=== PATIENT | female | born 1970 | race Hispanic/Latino ===

== ENCOUNTER 2019-08-07 03:45 | Emergency (ER) | payer BC ==
--- NOTE | 2019-08-07 05:24 | Cat Scan Report ---
CT head/brain wo con INDICATION / CLINICAL INFORMATION: fall head injury. TECHNIQUE: Axial CT imaging of the brain was obtained without contrast. Coronal and sagittal reformatted imaging obtained and reviewed. All CT scans at this location are performed using CT dose reduction for ALAR A by means of automated exposure control. COMPARISON: Prior head CT, 05/14/2014 FINDINGS: No intracranial hemorrhage, mass, or midline shift. No extra-axial fluid collection or suggestion of acute territorial infarct. Ventricular system and basilar cisterns are unremarkable. There is complete opacification of both maxillary antra, bilateral ethmoid air cells, and both fronta l sinuses. There is significant opacification of the sphenoid sinuses. The mastoid air cells are well aerated and clear. There appears to have been extensive bilateral sinus surgery. No calvarial fractu re noted. IMPRESSION: 1. No acute intracranial abnormality or evidence for traumatic injury. 2. Extensive pansinusitis Signer Name: Joelle Santiago MD Signed: 08/07/2019 5:19 AM Workstation Name: [id number]
[2019-08-07 05:39] LABS: Basophils # (Auto) 0.1 K/mm3 (0.0-0.1); Basophils % (Auto) 0.9 % (0.0-1.8); Eosinophils # (Auto) 0.8 K/mm3 (0.0-0.4); Hematocrit 41.5 % (30.3-42.9); Hemoglobin 13.7 gm/dl (10.1-14.3); Lymphocytes # (Auto) 2.1 K/mm3 (1.2-5.4); Lymphocytes % (Auto) 27.9 % (13.4-35.0); Mean Corpuscular HGB Conc 33 % (30-34); Mean Corpuscular Volume 88 fl (79-97); Monocytes # (Auto) 0.5 K/mm3 (0.0-0.8); Monocytes % (Auto) 6.4 % (0.0-7.3); Platelet Count 245 K/mm3 (140-440); Red Blood Count 4.73 M/mm3 (3.65-5.03); Red Cell Distribution Width 13.8 % (13.2-15.2)
[2019-08-07 06:04] LABS: Alanine Aminotransferase 17 units/L (7-56); Albumin 4.2 g/dL (3.9-5); BUN/Creatinine Ratio 17; Blood Urea Nitrogen 12 mg/dL (7-17); Calcium 9.1 mg/dL (8.4-10.2); Hemolysis Index 5
--- NOTE | 2019-08-07 06:26 | Emergency Department Report ---
ED Syncope HPI - General Chief Complaint: Syncope Stated Complaint: PASSED OUT Source: patient Exam Limitations: no limitations - History of Present Illness Initial Comments: Patient is a 49-year-old white female with a history of depression, anxiety and asthma who presents to the ED for evaluation after she had a single episode of vasovagal syncope about 30 minutes ago. Patient was watching an I&D procedure which was being performed on the heart daughter when she suddenly syncopized and fell on the floor hitting her head against compressible with brief loss of consciousness. Patient regained consciousness and admitted that she usually does not like seeing invasive procedures, and that she has previously had similar episode in the past. Patient denies headache, dizziness, nausea, vomiting, chest pain, shortness of breath, back pain, neck pain, change in vision, abdominal pain or loss of consciousness and seizure Timing/Prior Episodes: single episode today Precipitating Factors: Positive: other (Witnessed I&D procedure and had vasovagal syncope) Context: sitting, emotional stress Loss of Consciousness: brief (seconds) Current Symptoms: back to normal. denies: blurred vision, chest pain, diaphoresis, dizziness, headache, injury, lightheadedness, loss of bladder control, loss of bowel control, motionless, nausea, pale, shallow/rapid breathing, weak/absent pulse, weakness - Related Data Allergies/Adverse Reactions: Allergies clindamycin Allergy (Verified 04/23/14 20:54) Anaphylaxis duloxetine HCl [From Cymbalta] Allergy (Verified 04/23/14 20:54) Headache egg Allergy (Verified 04/23/14 20:54) Vomiting levofloxacin [From Levaquin] Allergy (Verified 04/23/14 20:54) Anaphylaxis Penicillins Allergy (Verified 04/23/14 20:54) Anaphylaxis Pork/Porcine Containing Products Allergy (Verified 04/23/14 20:54) Vomiting Sulfa (Sulfonamide Antibiotics) Allergy (Verified 04/23/14 20:54) Anaphylaxis ibuprofen Adverse Reaction (Verified 05/13/14 10:01) Vomiting lexapro Allergy (Uncoded 05/13/14 10:01) Unknown peanuts Allergy (Uncoded 05/13/14 10:01) Unknown Home Medications: Ambulatory Orders Beclomethasone Dipropionat(Nf) [Qvar 40MCG] 80 mcg INHALATION DAILY 04/24/14 Citalopram [celeXA] 10 mg PO QDAY 04/24/14 Levothyroxine [Synthroid] 88 mcg PO QAM 04/24/14 Montelukast Sodium [Singulair] 10 mg PO DAILY 04/24/14 Rosuvastatin (Nf) [Crestor] 20 mg PO QHS 04/24/14 ALBUTEROL Inhaler (OR & NICU) [ProAir HFA Inhaler] 1 inhalation INHALATION QDAY PRN 05/13/14 Levocetirizine Dihydrochloride [Xyzal] 5 mg PO Q48H 05/13/14 Indomethacin [Indocin] 25 mg PO Q8HR #30 capsule 05/17/14 Pregabalin 75 mg PO BID #60 capsule 05/17/14 ALBUTEROL Inhaler (OR & NICU) [ProAir HFA Inhaler] 2 puff IH QID PRN #1 inha 11/07/14 ALBUTEROL NEB's [Proventil 0.083% NEBS] 2.5 mg IH TID PRN #30 day 11/07/14 predniSONE [Deltasone] 50 mg PO QDAY #5 tab 11/07/14 Butalb/Acetamin/Caff 50-325-40 [Fioricet 50-325-40] 1 tab PO Q6HR PRN #12 tab 08/07/19 Doxycycline Hyclate [Doxycycline Hyclate TAB] 100 mg PO Q12HR #20 tab 08/07/19 ED Review of Systems ROS: Stated complaint: PASSED OUT Other details as noted in HPI Constitutional: denies: chills, fever Eyes: denies: eye pain, eye discharge, vision change ENT: denies: ear pain, throat pain, dental pain, hearing loss, congestion Respiratory: denies: cough, shortness of breath, wheezing Cardiovascular: denies: chest pain, palpitations Endocrine: no symptoms reported Gastrointestinal: denies: abdominal pain, nausea, diarrhea Genitourinary: denies: urgency, dysuria, discharge Musculoskeletal: denies: back pain, joint swelling, arthralgia Skin: denies: rash, lesions Neurological: other (syncope). denies: headache, weakness, paresthesias Psychiatric: anxiety. denies: depression Hematological/Lymphatic: denies: easy bleeding, easy bruising ED Past Medical Hx - Past Medical History Hx Hypertension: No Hx Congestive Heart Failure: No Hx Diabetes: No Hx Headaches / Migraines: Yes (MIGRAINES) Hx Asthma: Yes Hx COPD: No - Surgical History Additional Surgical History: Sinus Surgery, PARTIAL HYSTERECTOMY - Social History Smoking Status: Never Smoker Substance Use Type: None - Medications Home Medications: Home Medications Medication Instructions Recorded Confirmed Last Taken Type Beclomethasone Dipropionat(Nf) 80 mcg INHALATION DAILY 04/24/14 05/13/14 05/11/14 History [Qvar 40MCG] Citalopram [celeXA] 10 mg PO QDAY 04/24/14 05/13/14 05/12/14 16:00 History Levothyroxine [Synthroid] 88 mcg PO QAM 04/24/14 05/13/14 05/11/14 History 20 MG Montelukast Sodium [Singulair] 10 mg PO DAILY 04/24/14 05/13/14 05/11/14 History Rosuvastatin (Nf) [Crestor] 20 mg PO QHS 04/24/14 05/13/14 05/11/14 21:00 History ALBUTEROL Inhaler (OR & NICU) 1 inhalation INHALATION QDAY PRN 05/13/14 05/13/14 05/12/14 History [ProAir HFA Inhaler] Levocetirizine Dihydrochloride 5 mg PO Q48H 05/13/14 05/13/14 05/11/14 History [Xyzal] Indomethacin [Indocin] 25 mg PO Q8HR #30 capsule 05/17/14 Unknown Rx Pregabalin 75 mg PO BID #60 capsule 05/17/14 Unknown Rx ALBUTEROL Inhaler (OR & NICU) 2 puff IH QID PRN #1 inha 11/07/14 Unknown Rx [ProAir HFA Inhaler] ALBUTEROL NEB's [Proventil 0.083% 2.5 mg IH TID PRN #30 day 11/07/14 Unknown Rx NEBS] predniSONE [Deltasone] 50 mg PO QDAY #5 tab 11/07/14 Unknown Rx Butalb/Acetamin/Caff 50-325-40 1 tab PO Q6HR PRN #12 tab 08/07/19 Unknown Rx [Fioricet 50-325-40] Doxycycline Hyclate [Doxycycline 100 mg PO Q12HR #20 tab 11/13/19 Unknown Rx Hyclate TAB] ED Physical Exam - General Limitations: No Limitations General appearance: alert, in no apparent distress - Head Head exam: Present: atraumatic, normocephalic, normal inspection - Eye Eye exam: Present: normal appearance, PERRL, EOMI Pupils: Present: normal accommodation - ENT ENT exam: Present: normal exam, normal orophraynx, mucous membranes moist, TM's normal bilaterally, normal external ear exam - Neck Neck exam: Present: normal inspection, full ROM - Respiratory Respiratory exam: Present: normal lung sounds bilaterally. Absent: respiratory distress, wheezes, rales, rhonchi, chest wall tenderness, accessory muscle use, decreased breath sounds, prolonged expiratory - Cardiovascular Cardiovascular Exam: Present: normal rhythm, tachycardia. Absent: normal heart sounds, systolic murmur, diastolic murmur, rubs, gallop - GI/Abdominal GI/Abdominal exam: Present: soft, normal bowel sounds. Absent: tenderness, guarding, rebound, hyperactive bowel sounds, hypoactive bowel sounds, organomegaly - Extremities Exam Extremities exam: Present: normal inspection, full ROM, normal capillary refill - Back Exam Back exam: Present: normal inspection, full ROM. Absent: tenderness, CVA tenderness (R), CVA tenderness (L), muscle spasm, paraspinal tenderness - Neurological Exam Neurological exam: Present: alert, oriented X3, CN II-XII intact, normal gait, reflexes normal - Psychiatric Psychiatric exam: Present: normal affect, normal mood - Skin Skin exam: Present: warm, dry, intact, normal color. Absent: rash ED Course Vital Signs 08/07/19 03:48 Temperature 98 F Pulse Rate 105 H Respiratory 18 Rate Blood Pressure 110/61 O2 Sat by Pulse 100 Oximetry ED Medical Decision Making - Lab Data Result diagrams: 08/07/19 05:12 08/07/19 05:12 - EKG Data EKG shows normal: sinus rhythm Rate: normal - EKG Data Interpretation: normal EKG 08/07/19 06:32 The EKG shows normal sinus rhythm with ventricular rate of 64 bpm, and no ST or T-wave abnormalities. - Radiology Data Radiology results: report reviewed, image reviewed Findings [facility] [address] [place] [address] Cat Scan Report Signed Patient: MARTITA FARRELL MR#: [id number] : 1970 Acct:[id number] Age/Sex: 49 / F ADM Date: 08/07/19 Loc: ED Attending Dr: Ordering Physician: MARISOL SAUCEDO MD Date of Service: 08/07/19 Procedure(s): CT head/brain wo con Accession Number(s): [id number] cc: MARISOL SAUCEDO MD CT head/brain wo con INDICATION / CLINICAL INFORMATION: fall head injury. TECHNIQUE: Axial CT imaging of the brain was obtained without contrast. Coronal and s agittal reformatted imaging obtained and reviewed. All CT scans at this location are performed using CT dose reduction for ALARA by means of automated exposure control. COMPARISON: Prior head CT, 05/14/2014 FINDINGS: No intracranial hemorrhage, mass, or midline shift. No extra-axial fluid collection or suggestion of acute territorial infarct. Ventricular system and basilar cisterns are unremarkable. There is complete opacification of both maxillary antra, bilateral ethmoid air cells, and both frontal sinuses. There is significant opacification of the sphenoid sinuses. The mastoid air cells are well aerated and clear. There appears to have been extensive bilateral sinus surgery. No calvarial fracture noted. IMPRESSION: 1. No acute intracranial abnormality or evidence for traumatic injury. 2. Extensive pansinusitis Signer Name: Joelle Santiago MD Signed: 08/07/2019 5:19 AM Workstation Name: [id number] Transcribed By: Dictated By: Joelle Santiago MD Electronically Authenticated By: Joelle Santiago MD Signed Date/Time: 08/07/19518 DD/ 3 TD - Medical Decision Making This is a 49-year-old female who presented to the ED for evaluation after vasovagal syncope episode 30 minutes ago. In the ED, patient is alert and oriented 3 and is not in distress but tachycardic in triage. Head CT scan without contrast shows no intracranial hemorrhage, mass, or midline shift. No extra-axial fluid collection or suggestion of acute territorial infarct. Ventricular system and basilar cisterns are unremarkable. There is complete opacification of both maxillary antra, bilateral ethmoid air cells, and both frontal sinuses. There is significant opacification of the sphenoid sinuses. The mastoid air cells are well aerated and clear. There appears to have been extensive bilateral sinus surgery. No calvarial fracture noted. The EKG shows normal sinus rhythm with a ventricular rate of [address] or T-wave abnormalities. Lab test results were reviewed and are unremarkable. Patient was discharged home on medications including antibiotics and pain medications for headache. Patient was advised to return to the ED immediately if symptoms get worse or follow-up with her primary care physician in 7-10 days for reevaluation. - Differential Diagnosis Vasovagal syncope; Chronic sinusitis; sinus headache Critical care attestation.: If time is entered above; I have spent that time in minutes in the direct care of this critically ill patient, excluding procedure time. ED Disposition Clinical Impression: Vasovagal syncope Chronic sinusitis Qualifiers: Sinusitis location: pansinusitis Qualified Code(s): J32.4 - Chronic pansinusitis Disposition: TO HOME OR SELFCARE Is pt being admited?: No Does the pt Need Aspirin: No Condition: Stable Instructions: Syncope (ED), Acute Bacterial Rhinosinusitis (ED) Additional Instructions: Take medications with food, drink plenty of fluids and follow-up with your primary care physician in 7-10 days for reevaluation. Return to the ED immediately if symptoms get worse. Prescriptions: Doxycycline Hyclate [Doxycycline Hyclate TAB] 100 mg PO Q12HR #20 tab Butalb/Acetamin/Caff 50-325-40 [Fioricet 50-325-40] 1 tab PO Q6HR PRN #12 tab PRN Reason: Headache Referrals: PRIMARY CARE, [Primary Care Provider] - 3-5 Days Time of Disposition: 06:33 Print Language: ZAMBIAN
[2019-08-07 06:48] VITALS: BP 118/42
== END 2019-08-07 06:48 | disposition home or self-care (01) ==
LOC: ED 03:45
DX: R55 Syncope and collapse (principal); J32.9 Chronic sinusitis, unspecified; G43.909 Migraine, unspecified, not intractable, without status migrainosus; Z98.890 Other specified postprocedural states; Z88.1 Allergy status to other antibiotic agents; Z88.8 Allergy status to other drugs, medicaments and biological substances; Z91.012 Allergy to eggs; Z88.0 Allergy status to penicillin
CPT/HCPCS: 36415; 70450; 80053; 84484; 85025; 93005; 93010